=== PATIENT | male | born 1955 | race Caucasian/White ===

== ENCOUNTER 2019-05-16 17:36 | Emergency (ER) | payer OTHER, SELFPAY ==
--- NOTE | 2019-05-16 17:38 | ED.URI ---
HPI - URI/Sore Throat General Chief Complaint: Upper Respiratory Infection Stated Complaint: cough/chest congestion Time Seen by Provider: 05/16/19 17:50 Source: patient and RN notes reviewed Mode of arrival: ambulatory Limitations: no limitations History of Present Illness HPI Narrative: 64-year-old male presents with concern for 1 week history of cough, burning chest. Reports yesterday his chest was burning, he had back pain and headache, went to the pharmacy and got NyQuil. Reports NyQuil improve symptoms. Reports symptoms are improving today, however he continues to cough. Denies fever. MD elicited complaint: cough Related Data Allergies Allergy/AdvReac Type Severity Reaction Status Date / Time No Known Allergies Allergy Unverified 08/16/18 08:57 Review of Systems Review of Systems: Narrative: CONSTITUTIONAL: Denies malaise, chills, sweats, or fever. EYES: Denies visual changes, redness, or discharge. ENT: Reports rhinorrhea. Denies congestion, sinus pain, otalgia and sore throat. CARDIOVASCULAR: Denies chest pain, palpitations, or edema. RESPIRATORY: Reports cough, chest congestion. Denies dyspnea. GASTROINTESTINAL: Denies abdominal pain, nausea, vomiting, diarrhea SKIN: Denies rash or itching. MUSCULOSKELETAL: Denies current myalgia. NEUROLOGIC: Denies current headache. All systems reviewed & are unremarkable except as noted in HPI and below PMFSH Comments At time of signature, agree with nursing past medical, surgical, social and family history. There is no relevant family history pertinent to the presenting complaint Exam Narrative: Exam Narrative: GENERAL: Well-appearing, well-nourished, and in no acute distress. HEAD: Normocephalic, atraumatic. EYES: PERRLA, conjunctivae clear, and EOMI. ENT: Nares clear, turbinates erythematous, clear discharge. Mucous membranes moist. TM pearly arriaga with dull light reflex bilaterally; no tragal tenderness. Oropharynx not erythematous without lesions. Tonsils not enlarged and without exudate, no drooling, no hoarseness, no trismus. NECK: Supple. No lymphadenopathy CHEST: Clear to auscultation, breath sounds equal. No wheezing, rhonchi, rales, or stridor. No respiratory distress, speaks in full sentences. HEART: Regular rate and rhythm. No murmur heard. Normal peripheral pulses. SKIN: Warm, dry, no rash. NEURO: Alert and oriented x3. PSYCH: Normal mood and affect Course Course Emergency Course: Patient is aware of diagnosis, understands and agrees to treatment plan. Anticipatory guidance given. Patient agrees to follow-up as directed and is aware of reasons to seek care at the emergency department. Portions of this record may have been created with voice recognition software Vital Signs Vital signs: Vital Signs Temperature 97.9 F 05/16/19 17:45 Pulse Rate 92 05/16/19 17:45 Respiratory Rate 16 05/16/19 17:45 Blood Pressure 118/81 05/16/19 17:45 Pulse Oximetry 100 05/16/19 17:45 Temperature 97.9 F 05/16/19 17:45 Pulse Rate 92 05/16/19 17:45 Respiratory Rate 16 05/16/19 17:45 Blood Pressure 118/81 05/16/19 17:45 Pulse Oximetry 100 05/16/19 17:45 Reviewed. MDM - URI/Sore Throat MDM Narrative Medical decision making narrative: Differential diagnosis considered: Strep pharyngitis, allergic rhinitis, upper respiratory tract infection, sinusitis, rhinosinusitis, nasopharyngitis. viral pharyngitis, otitis media, otitis externa, pneumonia, bronchitis, viral cough syndrome, viral syndrome, and influenza. Exam findings show no acute concerns or changes; patient is non-toxic appearing and is in no distress. Patient is appropriate for outpatient treatment and follow-up. Critical Care Time Critical Care Time Critical Care Time: No Discharge Plan Discharge Clinical Impression: Bronchitis Patient Disposition: Home, Self-Care Condition: Stable Instructions: Acute Bronchitis (ED) Additional Instructions: Viral illness may last betwe
[2019-05-16 17:45] VITALS: BP 118/81; PULSE 92; RESP 16; TEMP 36.6; O2SAT 100
== END 2019-05-16 18:04 | disposition home or self-care (01) ==
PROVIDERS: Emergency Provider Nurse Practitioner
DX: J40 Bronchitis, not specified as acute or chronic (principal)
CPT/HCPCS: 99213; G0463

== ENCOUNTER 2020-10-03 14:22 | Emergency (ER) | payer BC, SELFPAY ==
[2020-10-03] VITALS (8 sets, daily range): BP systolic 113–138; BP diastolic 76–86; PULSE 78–98; RESP 14–24; TEMP 36.3–37; O2SAT 93–99
--- NOTE | ~2020-10-03 | XR_ITS ---
XR pelvis 1-2V DATE: 10/03/2020 17:28 INDICATION: Pelvic pain after fall TECHNIQUE: AP view COMPARISON: None FINDINGS: No pelvic fracture or bone destruction. The pubic symphysis and sacroiliac joints are intac t. Hip joint spaces appear symmetric and relatively preserved. No hip fracture or dislocation is dete cted. IMPRESSION: Negative Reviewed, dictated and finalized at location A. IMPRESSION: Negative
--- NOTE | ~2020-10-03 | XR_ITS ---
XR hand RT 2V DATE: 10/03/2020 17:28 INDICATION: Finger injury TECHNIQUE: AP and lateral views COMPARISON: None FINDINGS: No fracture of any fingers is detected. There is a bony density of undetermined significan ce overlying the space between the base of the first and remaining metacarpals on the lateral view; c onsider right wrist radiographs. IMPRESSION: No finger fracture Consider wrist radiographic examination if clinically warranted. Reviewed, dictated and finalized at location A.
--- NOTE | ~2020-10-03 | XR_ITS ---
XR chest 2V DATE: 10/03/2020 17:28 INDICATION: Weakness TECHNIQUE: AP and lateral views COMPARISON: None FINDINGS: Cardiomegaly. Aortic calcification, ectasia and tortuosity. No hilar or mediastinal enlargement. No pulmonary infiltrate or consolidation, pulmonary vascular co ngestion or pleural effusion or pneumothorax. There are old healed right rib and left clavicle fractures. Probable old compression fracture of T5. 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 IMPRESSION: Cardiomegaly Aortic atherosclerosis No active pulmonary disease Reviewed, dictated and finalized at location A.
--- NOTE | ~2020-10-03 | CT_ITS ---
EXAMINATION: CT brain wo con DATE: 10/03/2020 17:15 INDICATION: Seizure TECHNIQUE: Computed tomography (CT) of the head was performed without intravenous contrast. The mA wa s adjusted according to patient size. Iterative reconstruction technique was employed. Exam dose: 60 5.33 mGy-cm total exam DLP. COMPARISON: None FINDINGS: There is nonspecific diminished attenuation of the cerebral white matter, likely due to chr onic small vessel ischemic changes. Bilateral carotid siphon internal carotid artery calcifications a re noted. Minimal right basal ganglia calcification. No intracranial mass lesion or hemorrhage or cerebrovascular accident. No midline shift or mass effec t. No subdural or epidural hematoma is detected. There is a fluid level in the left frontal sinus and left maxillary sinus consistent with left fronta l maxillary sinusitis. There is prominent patchy opacification of the left and to a lesser extent rig ht ethmoid air cells. There is mild mucoperiosteal thickening of the sphenoid sinuses. The mastoid air cells are normally developed and aerated. No fracture or bone destruction of the cranial vault. IMPRESSION: Cerebral atherosclerosis and chronic small vessel ischemic changes of the cerebral white matter No acute intracranial finding. Left frontal and left maxillary sinus air-fluid levels consistent with sinusitis Patchy opacification of left and to a lesser extent right ethmoid air cells Mild mucoperiosteal thickening of the sphenoid sinuses Reviewed, dictated and finalized at Location [facility]. Reviewed, dictated and finalized at location A. IMPRESSION: Cerebral atherosclerosis and chronic small vessel ischemic changes of the cerebral white matter No acute intracranial finding. Left frontal and left maxillary sinus air-fluid levels consistent with sinusiti s Patchy opacification of left and to a lesser extent right ethmoid air cells Mild mucoperiosteal thickening of the sphenoid sinuses
--- NOTE | 2020-10-03 16:33 | PC.NURSE ---
pt c/o some discoloration to right 3rd and 4th fingers. abrasion to right shoulder. rash to right mid thigh. noting some right thigh tightness. pt here to get checked out. states took him until sunday until he could move after this event.
--- NOTE | 2020-10-03 16:43 | ECG_ITS ---
Measurements Intervals [place] Rate: 85 P: 55 VA: 155 QRS: -24 QRSD: 85 T: 32 QT: 353 QTc: 421 Interpretive Statements SINUS RHYTHM NONSPECIFIC ST ELEVATION IN ANTEROLAT/INF LEADS BASELINE ARTIFACT- I, II, III, AVR, AVF, V2-V6 BORDERLINE ECG Electronically Signed On 10-03-2020 19:29:31 CDT by Gatito Martins D.O.
[2020-10-03 17:04] LABS: Basophils Percent Auto 0.3 % (0.2-1.2); Eosinophils Absolute Auto 0.1 K/mm3 (0-0.3); Eosinophils Percent Auto 0.7 % (0-4.4); Hematocrit 41.5 % (42.0-52.0); Hemoglobin 13.7 g/dL (14.0-18.0); Immature Granulocyte Absolute 0.12 K/mm3 (0.00-0.031); Lymphocytes Absolute Auto 1.35 K/mm3 (0.9-3.2); Lymphocytes Percent Auto 11.6 % (18.3-44.2); Mean Corpuscular Hemoglobin 30.8 pg (26-34); Mean Corpuscular Volume 93.3 fl (80-100); Monocytes Absolute Auto 1.2 K/mm3 (0.1-0.6); Monocytes Percent Auto 10.5 % (2.6-8.5); Neutrophils Absolute Auto 8.9 K/mm3 (1.3-6.7); Neutrophils Percent Auto 75.9 % (45.5-73.1); Platelet Count Result 279 k/mm3 (150-375); Red Blood Count 4.45 M/mm3 (4.6-6.20); Red Cell Distribution Width 13.6 % (11.5-14.5); White Blood Count 11.7 K/mm3 (4.5-10.0)
[2020-10-03 17:17] LABS: Anion Gap 6 mmol/L (8-16); Blood Urea Nitrogen 16 mg/dL (9-20); Calcium 8.8 mg/dL (8.4-10.2); Carbon Dioxide 29 mmol/L (22-30); Chloride 105 mmol/L (98-107); Estimated CRCL calculation 57 ml/min; Estimated Glomerular Filt Rate > 60; Ethanol < 10 mg/dL (<10); Glucose 76 mg/dL (75-110); Phosphorus 3.2 mg/dL (2.5-4.5); Potassium 3.6 mmol/L (3.4-5.0); Sodium 140 mmol/L (137-145)
--- NOTE | 2020-10-03 17:44 | ED.AMS ---
HPI - Altered Mental Status General Chief Complaint: Seizure Stated Complaint: seizure last ? Time Seen by Provider: 10/03/20 16:11 Source: patient Mode of arrival: ambulatory Limitations: clinical condition History of Present Illness HPI narrative: 65-year-old male Patient is here today because 5 days ago when he woke up in the morning he found himself on the floor at the foot of his bed He does not know how he got there He does note that he had some scrapes on his right leg which are minor, and seem to have either pinched or burned a couple of fingers on his right hand, and initially his right foot felt like it was numb But he has no recollection whatsoever of how any of this stuff might of happened Patient surmises that he might of had a seizure, however he has never had a seizure before, he is not really a drinker, and there were no witnesses to any seizure type activity so who knows Patient states that it took him 5 days to get to the ER because he was waiting until he can get around better on his sore leg Related Data Home Medications Medication Instructions Recorded Confirmed No Home Medications 10/03/20 10/03/20 Allergies Allergy/AdvReac Type Severity Reaction Status Date / Time No Known Allergies Allergy Verified 10/03/20 14:51 Review of Systems Review of Systems: All systems reviewed & are unremarkable except as noted in HPI and below Constitutional: Constitutional: Reports no additional constitutional complaints, Denies chills, Reports fatigue, Denies fever(s), Denies headache(s) and Reports weakness Eyes: Eyes: Reports no additional eye complaints and Denies change in vision ENT: Denies headache(s) and Denies sore throat Cardiovascular: Cardiovascular: Denies chest pain, Denies rapid heart rate, Denies dyspnea and Denies slow heart rate Respiratory: Respiratory: Denies cough and Denies dyspnea Gastrointestinal: Gastrointestinal: Denies abdominal pain, Denies diarrhea and Denies vomiting Genitourinary: Genitourinary: Denies dysuria and Denies urinary frequency Musculoskeletal: Musculoskeletal: Reports back pain, Reports myalgias, Denies deformity, Reports arthralgias, Reports joint swelling and Denies numbness Integumentary/Breasts: Skin/Breast: Denies rash and Denies wounds Neurologic: Denies headache(s), Denies focal weakness, Denies numbness and Reports weakness Psychiatric: Psychiatric: Reports no additional psychiatric complaints Endocrine: Endocrine: Reports no additional endocrine complaints Hematologic/Lymphatic: Hematologic/Lymphatic: Reports no additional hematologic/lymphatic complaints Allergic/Immunologic: Allergic/Immunologic: Reports no additional allergic/immunologic complaints [facility] Social History Social History Gender identity (if verbalized by the patient): Male Exam Const: General: cooperative, no acute distress and alert Orientation/consciousness: patient oriented x3 (alert) HENMT: Head: normal to inspection, normocephalic, atraumatic, no contusions, no hematomas and no lacerations Ears: external ears normal General nose exam: no epistaxis Mouth: Yes moist mucous membranes Eyes: Conjunctivae: conjunctivae normal EOM: EOMs intact bilaterally Neck: Neck: normal visual inspection, supple and no JVD Resp: Effort & Inspection: normal respiratory effort and not labored Auscultation: clear to auscultation bilaterally and other (BS =) Cardio: Rate: regular rate Rhythm: regular rhythm Heart sounds: no murmurs GI: GI Palp: Yes Soft to palpation, No Tenderness to palpation present (GI), No Guarding due to palpation present (GI) and No Rebound tenderness present : General: Yes no CVA tenderness Skin: General skin exam: normal color and no rashes or lesions noted Other: There are 4 or 5 circular lesions on the right leg like he may have laid down on something Neuro: General: patient oriente
[2020-10-03 17:58] LABS: Creatine Kinase 1026 U/L (55-170)
--- NOTE | 2020-10-03 17:58 | PC.NURSE ---
pt states is unable to void
== END 2020-10-03 19:57 | disposition home or self-care (01) ==
PROVIDERS: Emergency Provider Emergency Medicine; PCP Internal Medicine
DX: S69.91XA Unspecified injury of right wrist, hand and finger(s), initial encounter (principal); S89.91XA Unspecified injury of right lower leg, initial encounter; R94.31 Abnormal electrocardiogram [ECG] [EKG]; I51.7 Cardiomegaly; I70.0 Atherosclerosis of aorta; W06.XXXA Fall from bed, initial encounter
CPT/HCPCS: 36415; 70450; 71046; 72170; 73120; 80048; 80307; 82550; 84100; 85025; 93005; 99284

== ENCOUNTER 2021-02-15 02:15 | Emergency (ER) | payer SELFPAY ==
[2021-02-15 02:22] VITALS: BP 141/86; PULSE 75; RESP 18; TEMP 36.7; O2SAT 100
--- NOTE | 2021-02-15 02:52 | PC.NURSE ---
patient not in room when xray entered room for left foot xray. area searched, patient not found. ER doctor informed
== END 2021-02-15 02:56 | disposition left against medical advice (07) ==
LOC: ANHED 02:52
PROVIDERS: Emergency Provider Emergency Medicine
DX: S90.30XA Contusion of unspecified foot, initial encounter (principal)
CPT/HCPCS: 99199

== ENCOUNTER 2021-02-26 19:30 | Emergency (ER) | payer OTHER, SELFPAY ==
--- NOTE | ~2021-02-26 | CT_ITS ---
EXAMINATION: CT thoracic spine wo con DATE: 02/26/2021 22:54 INDICATION: Back pain TECHNIQUE: Computed tomography (CT) of the thoracic spine was performed without intravenous contrast. The dose-length product (DLP) was 359.43 mGy-cm. Iterative reconstruction was used. COMPARISON: Chest radiograph dated 10/03/2020 FINDINGS: There is a stable compression fracture of T5. There is mild superior endplate deformity of the T7 vertebral body which also has a chronic appearance. No acute fracture is identified. Vertebral body alignment is maintained. There is mild loss of intervertebral disc space height at a few levels in the thoracic spine. The prevertebral soft tissues are normal. IMPRESSION: 1. Chronic thoracic compression fractures without acute fracture identified. Reviewed, dictated and finalized at location A. [employer]
[2021-02-26 19:32] VITALS: BP 138/92; PULSE 102; RESP 18; TEMP 36.1; O2SAT 98
[2021-02-26 21:17] VITALS: BP 121/88; PULSE 81; RESP 16; O2SAT 98
--- NOTE | 2021-02-26 21:17 | PC.NURSE ---
Pt requesting pain medication, EDP notified.
[2021-02-26] MEDS: KETOROLAC 30 MG/ML VIAL (*BKC) IM (22:27)
--- NOTE | 2021-02-26 22:51 | PC.NURSE ---
Pt to CT via wheelchair
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
[2021-02-26 23:18] VITALS: BP 139/90; PULSE 60; RESP 18; O2SAT 100
--- NOTE | 2021-02-26 23:18 | PC.NURSE ---
Pt moved to room 1, report given to Brianna Moss RN.
[2021-02-26 23:31] VITALS: BP 139/90; PULSE 60; RESP 18; TEMP 36.1; O2SAT 97
== END 2021-02-26 23:33 | disposition home or self-care (01) ==
PROVIDERS: Emergency Provider Emergency Medicine
DX: M54.6 Pain in thoracic spine (principal); V89.2XXA Person injured in unspecified motor-vehicle accident, traffic, initial encounter; Y92.410 Unspecified street and highway as the place of occurrence of the external cause
CPT/HCPCS: 72128; 96372; 99284; J1885